=== PATIENT | male | born 1995 | race Caucasian/White ===

== ENCOUNTER 2016-08-10 22:26 | Emergency (ER) | payer OTHER ==
[~2016-08-10] VITALS: Ht 182.9 cm; Wt 88.0 kg
[2016-08-10 22:37] VITALS: TEMP 36.4; Ht 182.9 cm; Wt 88.0 kg
[2016-08-10] MEDS ORDERED: LORAZEPAM 2 MG/ML 1 ML VIAL IV STA (22:49)
[2016-08-10] MEDS ORDERED: SODIUM CHLORIDE 0.9% 1000ML 1,000 ML IV STA (22:49)
--- NOTE | 2016-08-10 22:53 | EMERGENCY ROOM VISIT NOTE ---
History Report prepared by Monik: Uziel Das Under the Supervision of: Dr. Ryan Elena M.D. First contact with patient: 22:44 Chief Complaint: CARDIAC ASSESSMENT Stated Complaint: WPW HEART CONDITION- HEART FEELS FUNNY History of Present Illness The patient is a 21 year old male who presents to the Emergency Room for a cardiac assessment. The patient has a history of WPW. He has never had an issue with his condition until two years ago when he had some syncopal episodes. He is now medicated for it. However, he states that he has not been taking his medication, and he does not know what it is. He was drinking alcohol yesterday and did not recover enough today. Today, he continued to drink alcohol with energy drinks today. He noticed recently that his heart feels "funny." He denies any other symptoms at this time. Source of History: patient Onset: recently Position: other (heart) Symptom Intensity: mild Quality: other ("funny" feeling) Timing: constant Note: He denies any other abnormal symptoms at this time. Review of Systems See HPI for pertinent positives & negatives. A total of 10 systems reviewed and were otherwise negative. Past Medical & Surgical Medical Problems: (1) WPW (Dozni-Szcvpdgqd-Cxbzr syndrome) Family History Patient reports no known family medical history. Social History Smoking Status: Never Smoker Smokeless Tobacco Use: No Alcohol Use: occasionally Drug Use: none Marital Status: single Occupation Status: student Current/Historical Medications No Active Prescriptions or Reported Meds Allergies Coded Allergies: Amoxicillin (Verified Allergy, Unknown, RASH, 08/10/16) Physical Exam Vital Signs Date Time Temp Pulse Resp B/P Pulse Ox O2 Delivery O2 Flow Rate FiO2 08/11/16 00:48 82 16 127/86 98 08/10/16 22:57 99 Room Air 08/10/16 22:50 88 08/10/16 22:37 36.4 84 20 160/83 96 Room Air Physical Exam GENERAL: Patient is anxious appearing and in minimal acute distress. HEENT: No acute trauma, normocephalic atraumatic, mucous membranes moist, no nasal congestion, no scleral icterus. NECK: No stridor, no adenopathy, no meningismus, trachea is midline. LUNGS: No dyspnea. Clear to auscultation and equal bilaterally. No wheeze, no rhonchi. HEART: Regular rate and rhythm. No murmurs, rubs, gallops appreciated. ABDOMEN: Soft, nontender, bowel sounds positive, no masses appreciated, no peritonitis. BACK: No midline tenderness, no CVA tenderness EXTREMITIES: Normal motion all extremities, no cyanosis, no edema. NEUROLOGIC: Alert and oriented, no acute motor or sensory deficits, no focal weakness, cranial nerves grossly intact. SKIN: No rash, no jaundice, no diaphoresis. Discoloration on the right neck. States that this is chronic. Medical Decision & Procedures ER Provider Diagnostic Interpretation: X ray results are stated below per my interpretation: Chest: 1 view: No infiltrate, no effusion, normal cardiac border. Laboratory Results 08/10/16 22:50 Red Blood Count 5.25, Mean Corpuscular Volume 88.8, Mean Corpuscular Hemoglobin 31.4, Mean Corpuscular Hemoglobin Concent 35.4, Mean Platelet Volume 10.2, Neutrophils (%) (Auto) 79.7, Lymphocytes (%) (Auto) 12.7, Monocytes (%) (Auto) 7.2, Eosinophils (%) (Auto) 0.1, Basophils (%) (Auto) 0.1, Neutrophils # (Auto) 7.53, Lymphocytes # (Auto) 1.20, Monocytes # (Auto) 0.68, Eosinophils # (Auto) 0.01, Basophils # (Auto) 0.01 08/10/16 22:50 Test 08/10/16 22:50 White Blood Count 9.45 K/uL (4.8-10.8) Red Blood Count 5.25 M/uL (4.7-6.1) Hemoglobin 16.5 g/dL (14.0-18.0) Hematocrit 46.6 % (42-52) Mean Corpuscular Volume 88.8 fL (80-100) Mean Corpuscular Hemoglobin 31.4 pg (25-34) Mean Corpuscular Hemoglobin Concent 35.4 g/dl (32-36) Platelet Count 195 K/uL (130-400) Mean Platelet Volume 10.2 fL (7.4-10.4) Neutrophils (%) (Auto) 79.7 % Lymphocytes (%) (Auto) 12.7 % Monocytes (%) (Auto) 7.2 % Eosinophils (%) (Auto) 0.1 % Basophils (%) (Auto) 0.1 % Neutrophils # (Auto) 7.53 K/uL (1.4-6.5) Lymphocytes # (Auto) 1.20 K/uL (1.2-3.4) Monocytes # (Auto) 0.68 K/uL (0.11-0.59) Eosinophils # (Auto) 0.01 K/uL (0-0.5) Basophils # (Auto) 0.01 K/uL (0-0.2) RDW Standard Deviation 38.4 fL (36.4-46.3) RDW Coefficient of Variation 12.1 % (11.5-14.5) Immature Granulocyte % (Auto) 0.2 % Immature Granulocyte # (Auto) 0.02 K/uL (0.00-0.02) Anion Gap 11.0 mmol/L (3-11) Est Creatinine Clear Calc Drug Dose 128.3 ml/min Estimated GFR () 124.1 Estimated GFR (Non- 107.1 BUN/Creatinine Ratio 15.2 (10-20) Calcium Level 9.9 mg/dl (8.5-10.1) Total Creatine Kinase 552 U/L (39-308) Creatine Kinase MB 2.9 ng/ml (0.5-3.6) Creatine Kinase MB Ratio 0.5 (0-3.0) Troponin I < 0.015 ng/ml (0-0.045) Laboratory results as reviewed by me. Medications Administered Medications (Trade) Dose Ordered Sig/Mindi Route Start Time Stop Time Status Last Admin Dose Admin Lorazepam 1 mg 1 mg NOW STAT IV 08/10/16 22:49 08/10/16 22:50 DC 08/10/16 23:06 1 MG Sodium Chloride (Nss 1000ml) 1,000 ml @ 999 mls/hr Q1H1M STAT IV 08/10/16 22:49 08/10/16 23:49 DC 08/10/16 23:06 999 MLS/HR ECG Indication: palpitations Rate (beats per minute): 83 Rhythm: normal sinus Findings: no acute ischemic change, prolonged QT (502), no ectopy, other ( Morphology consistent with WPW) ED Course 4: The patient was evaluated in room B6. A complete history and physical exam was performed. 9: Ordered Sodium Chloride 1000 ml @ 999 mls/hr IV, Ativan Inj 1 mg IV 2340: The patient is feeling much better. He is comfortable going home after he finishes receiving his fluids. 0030: Reevaluated the patient. Discussed results and discharge instructions: He verbalized understanding and agreement. The patient is ready for discharge. Medical Decision Differential: NSR, SVT, PACs, PVCs, Cardiac Dysrhythmia, Endocrine Dysfunction, Eletrolyte/Metabolic Abnormality, Pulmonary Embolism, Infectious, GI, amonst other pathologies entertained. 21 yr old male with history of WPW who admits he often doesn't take his meds and is unsure of what they are. Arrives for evaluation of anxiety, palpitations and fatigue. In town for partying with friends. Admits heavy ETOH and caffeine intake over last 24 hours and minimal sleep. Vitals normal. EKG consistent with WPW but no acute other findings and on monitor without issue. Clearly anxious thus given ativan with resolution fo symptoms. Mild dehydration thus fluids given. Stressed no further etoh/caffeine. Labs unremarkable other than mild ck. Impression Primary Impression: Dehydration Additional Impressions: Anxiety Accidental caffeine overdose WPW (Upzxj-Rjamebzsm-Qankx syndrome) Scribe Attestation The scribe's documentation has been prepared under my direction and personally reviewed by me in its entirety. I confirm that the note above accurately reflects all work, treatment, procedures, and medical decision making performed by me. Departure Information Dispostion Home / Self-Care Prescriptions No Active Prescriptions or Reported Meds Referrals [facility] Forms IMPORTANT VISIT INFORMATION Patient Instructions ED Dehydration, My [facility] Additional Instructions Avoid any further stimulants and do not drink any more alcohol for at least the next 24 hours. Return immediately if chest pain, passing out or other concerning symptoms. Please follow up with your [facility] and make sure you are taking your medications as prescribed. Problem Qualifiers Additional Impressions: Accidental caffeine overdose Encounter type: initial encounter Qualified Codes: T43.611A - Poisoning by caffeine, accidental (unintentional), initial encounter
[2016-08-10 23:03] LABS: BASO % 0.1 %; BASO ABS # 0.01 K/uL (0-0.2); COMPLETE YES; EOS % 0.1 %; HEMATOCRIT 46.6 % (42-52); IG% 0.2 %; LYMPH % 12.7 %; MEAN CELL VOLUME 88.8 fL (80-100); MEAN CORPUSCULAR HEMOGLOBIN 31.4 pg (25-34); MEAN CORPUSCULAR HGB CONC 35.4 g/dl (32-36); MEAN PLATELET VOLUME 10.2 fL (7.4-10.4); MONO % 7.2 %; NEUT % 79.7 %; PLATELET COUNT 195 K/uL (130-400); RED BLOOD COUNT 5.25 M/uL (4.7-6.1); WHITE BLOOD COUNT 9.45 K/uL (4.8-10.8)
[2016-08-10 23:21] LABS: BLOOD UREA NITROGEN 15 mg/dl (7-18); BUN/CREATININE RATIO 15.2 (10-20); CALCIUM 9.9 mg/dl (8.5-10.1); CARBON DIOXIDE 27 mmol/L (21-32); CHLORIDE 102 mmol/L (98-107); GLUCOSE 116 mg/dl (70-99); POTASSIUM 3.1 mmol/L (3.5-5.1); SODIUM 140 mmol/L (136-145)
[2016-08-10 23:26] LABS: CKMB/CK RATIO 0.5 (0-3.0)
[2016-08-11 00:48] VITALS: BP 127/86; PULSE 82; O2SAT 98
--- NOTE | 2016-08-11 06:52 | DIAGNOSTIC IMAGING REPORT ---
CHEST ONE VIEW PORTABLE CLINICAL HISTORY: Chest pain. COMPARISON STUDY: No previous studies for comparison. FINDINGS: Lung volumes are normal. Lungs are clear. There is no pneumothorax or pleural effusion. Cardiac size is normal. Mediastinal contours are normal. There is no evidence of pulmonary edema. IMPRESSION: No acute cardiopulmonary findings. Electronically signed by: Venkatesh Mata M.D. 08/11/2016 6:50 AM Dictated Date/Time: 08/11/2016 6:49 AM
== END 2016-08-11 00:48 | disposition home or self-care (01) ==
LOC: C.EDB 22:31
DX: I45.6 Pre-excitation syndrome (principal); E86.0 Dehydration; F41.9 Anxiety disorder, unspecified; T43.611A Poisoning by caffeine, accidental (unintentional), initial encounter; Y63.6 Underdosing and nonadministration of necessary drug, medicament or biological substance